=== PATIENT | male | born 1965 | race Caucasian/White ===

== ENCOUNTER 2017-04-14 15:01 | Inpatient (IN) | payer MEDICARE, OTHER ==
[~2017-04-14] VITALS: Ht 185.4 cm; Wt 99.8 kg
[2017-04-14 15:23] LABS: HEMOGLOBIN 14.8 gm/dl (14.0-17.5); RED BLOOD COUNT 5.37 M/UL (4.20-5.50); WHITE BLOOD COUNT 9.7 K/UL (4.5-11.0)
[2017-04-14 15:46] LABS: BUN/CREATININE RATIO 28 (0-10)
[2017-04-15 02:49] LABS: RED BLOOD COUNT 5.09 M/UL (4.20-5.50); WHITE BLOOD COUNT 8.6 K/UL (4.5-11.0)
[2017-04-15 03:11] LABS: BUN/CREATININE RATIO 24 (0-10)
--- NOTE | 2017-04-15 18:26 | NUR ---
CRITICAL RESULTS CALLED TO DR MCKEON THIS AM, NO ORDERS RECEIVED AT THIS TIME
[2017-04-16 05:36] LABS: HEMOGLOBIN 14.5 gm/dl (14.0-17.5); RED BLOOD COUNT 5.29 M/UL (4.20-5.50); WHITE BLOOD COUNT 9.2 K/UL (4.5-11.0)
[2017-04-16 06:05] LABS: BUN/CREATININE RATIO 33 (0-10)
[2017-04-17 05:44] LABS: BUN/CREATININE RATIO 39 (0-10)
[2017-04-18 06:30] LABS: HEMOGLOBIN 14.2 gm/dl (14.0-17.5); RED BLOOD COUNT 5.18 M/UL (4.20-5.50); WHITE BLOOD COUNT 8.5 K/UL (4.5-11.0)
[2017-04-18 06:52] LABS: BUN/CREATININE RATIO 33 (0-10)
[2017-04-19 06:49] LABS: BUN/CREATININE RATIO 31 (0-10); HEMOGLOBIN 14.6 gm/dl (14.0-17.5); RED BLOOD COUNT 5.41 M/UL (4.20-5.50); WHITE BLOOD COUNT 8.2 K/UL (4.5-11.0)
== END 2017-04-21 16:08 | DRG 871 ==
LOC: ER1 15:01 → ZEROF 17:00 → M/S 17:00
PROVIDERS: Family Medicine; Internal Medicine; Internal Medicine Cardiovascular Disease; ADMIT Family Medicine
PROC: 4A023N7 Measurement of Cardiac Sampling and Pressure, Left Heart, Percutaneous Approach (ICD-10-PCS; principal; 2017-04-18)
PROC: B2111ZZ Fluoroscopy of Multiple Coronary Arteries using Low Osmolar Contrast (ICD-10-PCS; 2017-04-18)
PROC: 02HV33Z Insertion of Infusion Device into Superior Vena Cava, Percutaneous Approach (ICD-10-PCS; 2017-04-21)
PROC: B548ZZA Ultrasonography of Superior Vena Cava, Guidance (ICD-10-PCS; 2017-04-21)
DX: A41.01 Sepsis due to Methicillin susceptible Staphylococcus aureus (principal); I50.23 Acute on chronic systolic (congestive) heart failure; M86.171 Other acute osteomyelitis, right ankle and foot; I47.2 Ventricular tachycardia; I42.0 Dilated cardiomyopathy; M86.671 Other chronic osteomyelitis, right ankle and foot; I11.0 Hypertensive heart disease with heart failure; E11.69 Type 2 diabetes mellitus with other specified complication; E11.621 Type 2 diabetes mellitus with foot ulcer; L97.519 Non-pressure chronic ulcer of other part of right foot with unspecified severity; L97.529 Non-pressure chronic ulcer of other part of left foot with unspecified severity; J44.9 Chronic obstructive pulmonary disease, unspecified; E03.9 Hypothyroidism, unspecified; E78.5 Hyperlipidemia, unspecified; I34.0 Nonrheumatic mitral (valve) insufficiency; I45.9 Conduction disorder, unspecified; R74.8 Abnormal levels of other serum enzymes; L84 Corns and callosities; Z77.22 Contact with and (suspected) exposure to environmental tobacco smoke (acute) (chronic); G47.00 Insomnia, unspecified; Z91.14 Patient's other noncompliance with medication regimen; Z91.19 Patient's noncompliance with other medical treatment and regimen; Z86.73 Personal history of transient ischemic attack (TIA), and cerebral infarction without residual deficits; Z59.0 Homelessness; Z88.3 Allergy status to other anti-infective agents; Z88.1 Allergy status to other antibiotic agents; Z88.0 Allergy status to penicillin; Z82.49 Family history of ischemic heart disease and other diseases of the circulatory system; Z83.3 Family history of diabetes mellitus; Z84.1 Family history of disorders of kidney and ureter; Z80.9 Family history of malignant neoplasm, unspecified
CPT/HCPCS: ECHO; 36415; 36600; 71010; 71020; 73718; 80048; 80053; 80061; 80202; 82550; 82553; 82803; 82962; 83036; 83735; 83874; 83880; 84439; 84443; 84484; 85025; 85027; 85610; 86140; 87040; 87070; 87077; 87186; 87205; 93005; 93306; 93925; 94664; 96374; 99285; C1769; C1894; J0690; J1335; J1644; J1650; J1940; J2250; J2270; J3010; J3370; J7030; J7050; Q9963

== ENCOUNTER → 2020-12-01 | Outpatient (CLI) | payer MEDICARE, OTHER ==
[~2020-12-01] MED LIST: ACCU-CHEK COMB1 EACH MC; ALDACTONE 25MG25 MG PO; ALPRAZOLAM0.5 MG PO; AMITIZA 24 MCG24 MCG PO; AMOX CLAV PO; ASPIR-LOW81 MG PO; ASPIRIN EC81 MG PO; ATORVASTATIN CA20 MG PO; AUGMENTIN 875-1 EACH PO; BACLOFEN20 MG PO; BACTRIM DS TAB1 EACH PO; BENADRYL ALLERG25 MG PO; BENADRYL25 MG PO; BETADINE30 ML TOP; CLARITIN 10MG T10 MG PO; CLARITIN10 MG PO; CLEOCIN 150MG150 MG PO; CLEOCIN HCL300 MG PO; COREG 12.5MG12.5 MG PO; COZAAR 50MG TAB50 MG PO; DESYREL 50 MG T50 MG PO; DOME-PASTE BANDA1 EA EXT; ELIQUIS5 MG PO; FERROUS SULFAT325 M2 PO; FLAGYL INJ; FLONASE 0.05% N16 GM; FUROSEMIDE20 MG PO; FUROSEMIDE40 MG PO; GABAPENTIN800 MG PO; HUMALOG MI100 UNIT/3 SQ; HUMALOG100 UNIT/3 SC; HUMALOG100 UNIT/3 SQ; HYDROCODON-ACE1 EAC2 PO; HYDROCODON-ACE1 EAC4 PO; HYSEPT473 ML TOP; JANUMET 50-1,01 EACH PO; K-DUR TAB 10 M10 MEQ PO; KEFLEX500 MG PO; LANCET 30G-GLU1 EACH MC; LANTUS INS100 UTS/M1 SC; LANTUS INS100 UTS/M2 SQ; LANTUS SOL100 UNIT/1 SQ; LASIX20 MG PO; LASIX40 MG PO; LASIX80 MG PO; LEVAQUIN750 MG PO; LEVOFLOXACIN500 MG PO; LEVOFLOXACIN750 MG PO; LEVOTHYROXINE50 MCG PO; LIPITOR TAB 2020 MG PO; LIPITOR80 MG PO; LISINOPRIL10 MG PO; LISINOPRIL5 MG PO; LOPRESSOR 50 MG50 MG PO; LORTAB 7.5-3251 EACH PO; LOVENOX SY120 MG/0.8 SQ; METOPROLOL SUCC25 MG PO; MIRALAX17 GM PO; MUCINEX600 MG PO; NEOSPORIN OINT15 GM TOP; NEURONTIN 400400 MG PO; NEURONTIN800 MG PO; NORCO 10-325 T1 EACH PO; NORCO 5-325 TA1 EACH PO; NORCO 7.5-3251 EACH PO; PERCOCET 5/325 T1 EA PO; POVIDONE-IOD28.35 GM TOP; PROAIR HFA8.5 GM INH; PROTONIX40 MG PO; ROCEPHIN 2 GM AD2 GM IV; SENOKOT-S TABL1 EACH PO; SEROQUEL25 MG PO; SERTRALINE HCL50 MG PO; SYNTHROID100 MCG PO; TOPROL XL 25 MG25 MG PO; VANCOMYCIN; VANCOMYCIN HC1.25 GM IV; VANCOMYCIN1.5 GM/300 IV; VITAMIN C 500500 MG PO; WARFARIN SODIUM5 MG PO; XANAX 0.25 MG0.25 MG PO; ZESTRIL/PRINIVI10 MG PO; ZYVOX600 MG PO
== END ==
LOC: KOH-I 09:30
DX: M86.8X7 Other osteomyelitis, ankle and foot (principal); Z89.411 Acquired absence of right great toe; M79.89 Other specified soft tissue disorders
CPT/HCPCS: 73718

== ENCOUNTER → 2021-02-28 | Outpatient (CLI) | payer MEDICARE, OTHER | LOC: KOH-I 02-23 15:30 | DX: M86.171 Other acute osteomyelitis, right ankle and foot (principal); Z98.890 Other specified postprocedural states; Z47.89 Encounter for other orthopedic aftercare | CPT/HCPCS: 73718 ==

== ENCOUNTER 2021-03-05 16:45 | Inpatient (IN) | payer MEDICARE, OTHER ==
[~2021-03-05] VITALS: Ht 182.9 cm; Wt 114.3 kg
[~2021-03-05 16:45] MED LIST changes: -ACCU-CHEK COMB1 EACH MC; -HUMALOG100 UNIT/3 SC; -JANUMET 50-1,01 EACH PO; -LANCET 30G-GLU1 EACH MC; -LANTUS INS100 UTS/M1 SC; -LANTUS SOL100 UNIT/1 SQ
[2021-03-05] MEDS ORDERED: HYDROCODON-ACE1 EAC2 PO (19:40)
[2021-03-05 20:35] LABS: HEMOGLOBIN 14.8 gm/dl (14.0-17.5); RED BLOOD COUNT 5.56 M/UL (4.20-5.50); WHITE BLOOD COUNT 8.1 K/UL (4.5-11.0)
[2021-03-05 21:03] LABS: BUN/CREATININE RATIO 52 (0-10)
[2021-03-06 05:39] LABS: BUN/CREATININE RATIO 48 (0-10)
--- NOTE | 2021-03-06 15:31 | NUR ---
CALLED DR. RBAXTON 4 TIMES AND LEFT MESSAGE ON 3RD CALL. NO CALL BACK.
[2021-03-07 04:50] LABS: HEMOGLOBIN 13.5 gm/dl (14.0-17.5); RED BLOOD COUNT 5.11 M/UL (4.20-5.50)
[2021-03-07 04:56] LABS: WHITE BLOOD COUNT 5.9 K/UL (4.5-11.0)
[2021-03-07 05:12] LABS: BUN/CREATININE RATIO 41 (0-10)
--- NOTE | 2021-03-07 11:51 | NUR ---
Patient transported by or staff members to the or for surgery with dr. florence today
[2021-03-08 04:12] LABS: HEMOGLOBIN 13.6 gm/dl (14.0-17.5); RED BLOOD COUNT 5.1 M/UL (4.20-5.50)
[2021-03-08 04:14] LABS: WHITE BLOOD COUNT 12.1 K/UL (4.5-11.0)
[2021-03-08 04:50] LABS: BUN/CREATININE RATIO 41 (0-10)
[2021-03-08 11:25] LABS: BUN/CREATININE RATIO 45 (0-10)
[2021-03-09 06:01] LABS: HEMOGLOBIN 13.2 gm/dl (14.0-17.5); RED BLOOD COUNT 5.08 M/UL (4.20-5.50)
[2021-03-09 06:02] LABS: WHITE BLOOD COUNT 7.2 K/UL (4.5-11.0)
[2021-03-09 06:17] LABS: BUN/CREATININE RATIO 35 (0-10)
[2021-03-10 03:36] LABS: HEMOGLOBIN 13.3 gm/dl (14.0-17.5); RED BLOOD COUNT 5.29 M/UL (4.20-5.50); WHITE BLOOD COUNT 7.4 K/UL (4.5-11.0)
[2021-03-10 04:34] LABS: BUN/CREATININE RATIO 40 (0-10)
--- NOTE | 2021-03-10 05:03 | NUR ---
0045 Pt sitting on side of bed states feeling better than i was. Pt denies any chest tightness, headache, ornot feeling well.
--- NOTE | 2021-03-10 05:03 | NUR ---
2350 Visitor brought pt arnold taylor.
--- NOTE | 2021-03-10 05:04 | NUR ---
0200 Pt resting quietly with eyes closed. No acute distress noted. No c/o voiced.
--- NOTE | 2021-03-11 03:17 | NUR ---
03/11/21 0000 PT HAS BEEN GETTING FOOD OUT OF VENDING MACHINE.
[2021-03-11 03:24] LABS: HEMOGLOBIN 13.2 gm/dl (14.0-17.5); RED BLOOD COUNT 5.04 M/UL (4.20-5.50); WHITE BLOOD COUNT 5.6 K/UL (4.5-11.0)
[2021-03-11 03:46] LABS: BUN/CREATININE RATIO 35 (0-10)
[2021-03-12 02:55] LABS: HEMOGLOBIN 13.8 gm/dl (14.0-17.5); RED BLOOD COUNT 5.27 M/UL (4.20-5.50)
[2021-03-12 03:19] LABS: BUN/CREATININE RATIO 37 (0-10)
--- NOTE | 2021-03-12 04:00 | NUR ---
03/12/21 0030 PT REFUSED DRSG CHANGE. STATES WAS DONE LATE IN THE DAY AND WILL WAIT UNTIL TOMORROW.
[2021-03-12] MEDS ORDERED: LANTUS INS100 UTS/M1 SC (17:43)
[2021-03-12] MEDS ORDERED: JANUMET 50-1,01 EACH PO (17:43)
[2021-03-12] MEDS ORDERED: ZYVOX600 MG PO (17:43)
[2021-03-12] MEDS ORDERED: LANCET 30G-GLU1 EACH MC (17:47)
[2021-03-12] MEDS ORDERED: ACCU-CHEK COMB1 EACH MC (17:47)
[2021-03-12] MEDS ORDERED: LANTUS SOL100 UNIT/1 SQ (17:54)
[2021-03-12] MEDS ORDERED: HUMALOG100 UNIT/3 SC (17:54)
== END 2021-03-12 19:16 | disposition home or self-care (01) | DRG 617 ==
LOC: M/S 18:15 → OB 03-08 09:52 → M/S 03-12 19:16
PROVIDERS: Family Medicine; Internal Medicine; Physician Assistant Medical; Podiatrist Foot & Ankle Surgery; ADMIT Internal Medicine
PROC: 0JBQ0ZZ Excision of Right Foot Subcutaneous Tissue and Fascia, Open Approach (ICD-10-PCS; 2021-03-07)
PROC: 0Y6W0Z0 Detachment at Left 4th Toe, Complete, Open Approach (ICD-10-PCS; principal; 2021-03-07 12:15)
DX: E11.69 Type 2 diabetes mellitus with other specified complication (principal); E11.52 Type 2 diabetes mellitus with diabetic peripheral angiopathy with gangrene; I96 Gangrene, not elsewhere classified; M86.8X7 Other osteomyelitis, ankle and foot; L03.115 Cellulitis of right lower limb; I50.22 Chronic systolic (congestive) heart failure; E87.1 Hypo-osmolality and hyponatremia; I42.8 Other cardiomyopathies; E11.621 Type 2 diabetes mellitus with foot ulcer; E11.65 Type 2 diabetes mellitus with hyperglycemia; E78.5 Hyperlipidemia, unspecified; I10 Essential (primary) hypertension; E03.9 Hypothyroidism, unspecified; F41.9 Anxiety disorder, unspecified; E11.40 Type 2 diabetes mellitus with diabetic neuropathy, unspecified; Z20.822 Contact with and (suspected) exposure to COVID-19; I11.0 Hypertensive heart disease with heart failure; Z91.14 Patient's other noncompliance with medication regimen; Z86.711 Personal history of pulmonary embolism; Z88.6 Allergy status to analgesic agent; Z83.3 Family history of diabetes mellitus
CPT/HCPCS: 36415; 73718; 80048; 80053; 80202; 81001; 82550; 82553; 82962; 83036; 83735; 83930; 83935; 84132; 84300; 84484; 85025; 87040; 87070; 87077; 87186; 87205; 93005; 93925; J1100; J1335; J1644; J1940; J2001; J2185; J2270; J2405; J2704; J2795; J3010; J3370; J7030; J7050; J7070; J7120; Q4133; U0002

== ENCOUNTER 2021-08-02 09:57 | Emergency (ER) | payer MEDICARE, OTHER ==
[~2021-08-02 09:57] MED LIST changes: +ACCU-CHEK COMB1 EACH MC; +HUMALOG100 UNIT/3 SC; +JANUMET 50-1,01 EACH PO; +LANCET 30G-GLU1 EACH MC; +LANTUS INS100 UTS/M1 SC; +LANTUS SOL100 UNIT/1 SQ
[2021-08-02 12:21] LABS: HEMOGLOBIN 13.5 gm/dl (14.0-17.5); RED BLOOD COUNT 4.65 M/UL (4.20-5.50)
[2021-08-02 12:51] LABS: BUN/CREATININE RATIO 27 (0-10)
[2021-08-02] MEDS ORDERED: AUGMENTIN 875-1 EACH PO (18:09)
== END 2021-08-02 18:54 | disposition home or self-care (01) ==
LOC: ER1 09:57
PROVIDERS: Nurse Practitioner
DX: E11.621 Type 2 diabetes mellitus with foot ulcer (principal); E11.9 Type 2 diabetes mellitus without complications; I10 Essential (primary) hypertension; E78.5 Hyperlipidemia, unspecified; E03.9 Hypothyroidism, unspecified; Z88.8 Allergy status to other drugs, medicaments and biological substances
CPT/HCPCS: 73630; 80053; 83605; 85025; 85652; 86140; 87040; 87070; 87077; 87186; 87205; 99284

== ENCOUNTER 2021-10-15 16:42 | Inpatient (IN) | payer MEDICARE, OTHER ==
[~2021-10-15] VITALS: Ht 182.9 cm; Wt 99.3 kg
[~2021-10-15 16:42] MED LIST changes: +METOPROLOL TART25 MG PO; -TOPROL XL 25 MG25 MG PO
[2021-10-15 18:45] LABS: HEMOGLOBIN 14.1 gm/dl (14.0-17.5); RED BLOOD COUNT 5.11 M/UL (4.20-5.50)
[2021-10-15 19:28] LABS: BUN/CREATININE RATIO 40 (0-10)
[2021-10-16] MEDS ORDERED: GABAPENTIN600 MG PO (00:23)
[2021-10-16 08:48] LABS: RED BLOOD COUNT 4.71 M/UL (4.20-5.50); WHITE BLOOD COUNT 9.6 K/UL (4.5-11.0)
[2021-10-16 09:58] LABS: BUN/CREATININE RATIO 40 (0-10)
[2021-10-16] MEDS ORDERED: TRAZODONE HCL50 MG PO (11:24)
[2021-10-16] MEDS ORDERED: MELATONIN3 MG PO (11:28)
[2021-10-16] MEDS ORDERED: LORATADINE10 MG PO (11:28)
[2021-10-16] MEDS ORDERED: ELIQUIS5 MG PO (11:28)
[2021-10-16] MEDS ORDERED: SERTRALINE HCL50 MG PO (11:28)
[2021-10-17 05:43] LABS: HEMOGLOBIN 11.3 gm/dl (14.0-17.5); RED BLOOD COUNT 4.27 M/UL (4.20-5.50); WHITE BLOOD COUNT 7.6 K/UL (4.5-11.0)
[2021-10-17 06:41] LABS: BUN/CREATININE RATIO 27 (0-10)
[2021-10-18 06:15] LABS: HEMOGLOBIN 11.2 gm/dl (14.0-17.5); RED BLOOD COUNT 4.08 M/UL (4.20-5.50); WHITE BLOOD COUNT 8.6 K/UL (4.5-11.0)
[2021-10-18 06:46] LABS: BUN/CREATININE RATIO 30 (0-10)
[2021-10-19 06:11] LABS: BUN/CREATININE RATIO 22 (0-10)
--- NOTE | 2021-10-19 14:28 | NUR ---
Patient declined dressing change on bilateral feet. The patient stated that they were recently changed this morning, were not leaking, and the dressing wasn't causing any discomfort so did not need changed again.
[2021-10-20 07:56] LABS: HEMOGLOBIN 10.3 gm/dl (14.0-17.5); RED BLOOD COUNT 3.93 M/UL (4.20-5.50)
[2021-10-20 07:57] LABS: WHITE BLOOD COUNT 5.5 K/UL (4.5-11.0)
[2021-10-20 08:06] LABS: BUN/CREATININE RATIO 22 (0-10)
[2021-10-23 08:18] LABS: HEMOGLOBIN 10.8 gm/dl (14.0-17.5); RED BLOOD COUNT 4.01 M/UL (4.20-5.50); WHITE BLOOD COUNT 6.4 K/UL (4.5-11.0)
[2021-10-23 08:44] LABS: BUN/CREATININE RATIO 19 (0-10)
[2021-10-23] MEDS ORDERED: ERTAPENEM (12:22)
[2021-10-23] MEDS ORDERED: DAPTOMYCIN (12:22)
[2021-10-24 07:50] LABS: HEMOGLOBIN 10.6 gm/dl (14.0-17.5); RED BLOOD COUNT 4.03 M/UL (4.20-5.50); WHITE BLOOD COUNT 5.8 K/UL (4.5-11.0)
[2021-10-24 08:22] LABS: BUN/CREATININE RATIO 18 (0-10)
--- NOTE | 2021-10-24 15:01 | NUR ---
PT SENT HOME WITH IV ANTIBIOTICS FOR PRESCRIPTION IV ANTIBIOTICS. [facility] CALLED REPORT (GILMER
== END 2021-10-24 17:36 | disposition home health service (06) | DRG 264 ==
LOC: ER1 16:42 → CDU 22:16 → MED SURG 4 22:16
PROVIDERS: Emergency Medicine; Internal Medicine; Internal Medicine Infectious Disease; Physician Assistant; ADMIT Internal Medicine
PROC: 0JBQ0ZZ Excision of Right Foot Subcutaneous Tissue and Fascia, Open Approach (ICD-10-PCS; principal; 2021-10-19)
PROC: 0JBR0ZZ Excision of Left Foot Subcutaneous Tissue and Fascia, Open Approach (ICD-10-PCS; 2021-10-19)
PROC: 02HV33Z Insertion of Infusion Device into Superior Vena Cava, Percutaneous Approach (ICD-10-PCS; 2021-10-24)
PROC: B548ZZA Ultrasonography of Superior Vena Cava, Guidance (ICD-10-PCS; 2021-10-24)
DX: E11.52 Type 2 diabetes mellitus with diabetic peripheral angiopathy with gangrene (principal); M86.8X7 Other osteomyelitis, ankle and foot; I50.22 Chronic systolic (congestive) heart failure; Z20.822 Contact with and (suspected) exposure to COVID-19; I42.9 Cardiomyopathy, unspecified; L03.115 Cellulitis of right lower limb; E11.69 Type 2 diabetes mellitus with other specified complication; E03.9 Hypothyroidism, unspecified; E78.5 Hyperlipidemia, unspecified; E11.610 Type 2 diabetes mellitus with diabetic neuropathic arthropathy; I11.0 Hypertensive heart disease with heart failure; E11.621 Type 2 diabetes mellitus with foot ulcer; Z79.4 Long term (current) use of insulin; Z79.82 Long term (current) use of aspirin; Z79.01 Long term (current) use of anticoagulants; Z86.73 Personal history of transient ischemic attack (TIA), and cerebral infarction without residual deficits; Z09 Encounter for follow-up examination after completed treatment for conditions other than malignant neoplasm; Z86.711 Personal history of pulmonary embolism; Z89.431 Acquired absence of right foot; Z98.890 Other specified postprocedural states; Z83.3 Family history of diabetes mellitus; Z82.61 Family history of arthritis; Z88.1 Allergy status to other antibiotic agents
CPT/HCPCS: 36415; 71045; 73630; 73718; 80048; 80053; 80202; 82962; 83036; 83605; 85025; 85027; 85652; 86140; 86141; 87040; 93925; 96374; 96375; 97110-GP-CQ; 97116; 97161; 99285; C1751; J0878; J1335; J1650; J2270; J2405; J3370; J7030; J7070; U0002

== ENCOUNTER → 2021-11-05 | Outpatient (CLI) | payer MEDICARE, OTHER ==
[~2021-11-05] MED LIST changes: +DAPTOMYCIN; +ERTAPENEM; +GABAPENTIN600 MG PO; +LORATADINE10 MG PO; +MELATONIN3 MG PO; +TRAZODONE HCL50 MG PO
[2021-11-05 15:10] LABS: HEMOGLOBIN 11.6 gm/dl (14.0-17.5); RED BLOOD COUNT 4.18 M/UL (4.20-5.50); WHITE BLOOD COUNT 7.3 K/UL (4.5-11.0)
[2021-11-05 15:33] LABS: BUN/CREATININE RATIO 26 (0-10)
== END ==
LOC: PHH 14:23
PROVIDERS: Podiatrist Foot & Ankle Surgery
DX: M86.171 Other acute osteomyelitis, right ankle and foot (principal)
CPT/HCPCS: 80053; 85025; 85652; 86140

== ENCOUNTER 2022-06-11 16:10 | Inpatient (IN) | payer MEDICARE, OTHER ==
[~2022-06-11] VITALS: Ht 182.9 cm; Wt 122.1 kg
[~2022-06-11 16:10] MED LIST changes: +AMIODARONE HCL200 MG PO; +BUMETANIDE1 MG PO; +COMBIVENT RESPIM4 GM INH; +GABAPENTIN100 MG PO; +GABAPENTIN300 MG PO; -GABAPENTIN600 MG PO; +HUMALOG 10100 UNITS/ SC; +INVANZ 1 GM VIAL1 GM IV; +JARDIANCE10 MG PO; +LANTUS100 UNIT/1 SQ; +LEVOTHYROXINE100 MCG PO; +LEVOTHYROXINE125 MCG PO; +LIPITOR40 MG PO; +MIDODRINE HCL2.5 MG PO; +NYSTATIN60 GM TOP; +PRAZOSIN HCL2 MG PO; +QUETIAPINE FUM100 MG PO; +RISPERIDONE1 MG PO; +THERAGRAN M TAB1 EA PO
[2022-06-11] MEDS ORDERED: GABAPENTIN300 MG PO (17:13)
[2022-06-11] MEDS ORDERED: HUMALOG100 UNIT/2 SQ ×2 (17:13→17:14)
[2022-06-11] MEDS ORDERED: FLONASE ALLER15.8 ML (17:13)
[2022-06-11] MEDS ORDERED: PROTONIX 40 MG40 M1 PO (17:14)
[2022-06-11] MEDS ORDERED: LEVOTHYROXINE175 MCG PO (17:14)
[2022-06-11] MEDS ORDERED: ELIQUIS2.5 MG PO (17:14)
[2022-06-11] MEDS ORDERED: BUMETANIDE2 MG PO (17:15)
[2022-06-11] MEDS ORDERED: DOCUSATE SODIU100 MG PO (17:15)
[2022-06-11] MEDS ORDERED: LANTUS100 UNIT/1 SQ (17:15)
[2022-06-11] MEDS ORDERED: ATORVASTATIN CA40 MG PO (17:15)
[2022-06-11] MEDS ORDERED: TYLENOL325 M1 PO (17:16)
[2022-06-11] MEDS ORDERED: BISACODYL10 MG PR (17:16)
[2022-06-11] MEDS ORDERED: ASPIRIN EC81 MG PO (17:16)
[2022-06-11] MEDS ORDERED: AMIODARONE HCL200 MG PO (17:16)
[2022-06-11] MEDS ORDERED: MIDODRINE HCL5 MG PO (17:17)
[2022-06-11] MEDS ORDERED: SPIRONOLACTONE25 MG PO (17:17)
[2022-06-11] MEDS ORDERED: FERROUS SULFAT325 MG PO (17:17)
[2022-06-11] MEDS ORDERED: MELATONIN3 MG PO (17:17)
[2022-06-11] MEDS ORDERED: MYCOSTATIN OINT15 GM TOP (17:18)
[2022-06-11] MEDS ORDERED: SERTRALINE HCL50 MG PO (17:18)
[2022-06-11] MEDS ORDERED: MOVANTIK12.5 MG PO (17:18)
[2022-06-11] MEDS ORDERED: METOCLOPRAMIDE H5 MG PO (17:18)
[2022-06-11] MEDS ORDERED: ZOFRAN ODT 4 MG4 MG PO (17:19)
[2022-06-11] MEDS ORDERED: MIRALAX17 GM PO (17:19)
[2022-06-11] MEDS ORDERED: OXYCODONE HCL10 MG PO (17:19)
[2022-06-11] MEDS ORDERED: SENNA-DOCUSATE1 EACH PO (17:20)
[2022-06-11] MEDS ORDERED: SIMETHICONE80 MG PO (17:20)
[2022-06-11] MEDS ORDERED: NASAL SPRAY44 ML (17:21)
[2022-06-11 18:55] LABS: RED BLOOD COUNT 3.86 M/UL (4.20-5.50); WHITE BLOOD COUNT 6.6 K/UL (4.5-11.0)
[2022-06-12 02:56] LABS: HEMOGLOBIN 10.4 gm/dl (14.0-17.5); RED BLOOD COUNT 3.64 M/UL (4.20-5.50); WHITE BLOOD COUNT 6.3 K/UL (4.5-11.0)
[2022-06-13 03:24] LABS: HEMOGLOBIN 10.5 gm/dl (14.0-17.5); RED BLOOD COUNT 3.71 M/UL (4.20-5.50); WHITE BLOOD COUNT 7.8 K/UL (4.5-11.0)
[2022-06-14 01:50] LABS: HEMOGLOBIN 10.6 gm/dl (14.0-17.5); RED BLOOD COUNT 3.65 M/UL (4.20-5.50); WHITE BLOOD COUNT 6.3 K/UL (4.5-11.0)
[2022-06-15 01:39] LABS: HEMOGLOBIN 10.4 gm/dl (14.0-17.5); RED BLOOD COUNT 3.61 M/UL (4.20-5.50)
[2022-06-18 01:55] LABS: HEMOGLOBIN 10.6 gm/dl (14.0-17.5); RED BLOOD COUNT 3.71 M/UL (4.20-5.50); WHITE BLOOD COUNT 7.4 K/UL (4.5-11.0)
--- NOTE | 2022-06-18 11:18 | NUR ---
[facility] PLACE ORDER TO CASE MANAGEMENT FOR HOME WALKER
[2022-06-19] MEDS ORDERED: SENNA-DOCUSATE1 EACH PO (14:55)
[2022-06-19] MEDS ORDERED: JARDIANCE10 MG PO (14:55)
[2022-06-19] MEDS ORDERED: MIRALAX17 GM PO (14:55)
[2022-06-19] MEDS ORDERED: BUMETANIDE1 MG PO (14:55)
--- NOTE | 2022-06-19 17:46 | NUR ---
CALLED BY TRANSPORT RE PT COULD NOT GET UP INTO CAB. PT STATED COULD NOT MOVE LEGS ANYMORE AND COULD NOT GET IN CAB AND ALSO STATES CAN NOT GET INTO HOUSE BECAUSE THEY HAVE 6 STEPS TO GO UP AND WOULD NOT BE ABLE TO GET UP THEM. CALLED [employer] MACHINE AND SHE STATED TO TAKE PT BACK TO ROOM 6111 AND LET MD KNOW WHAT HAPPENED.
[2022-06-23 08:20] LABS: HEMOGLOBIN 11.2 gm/dl (14.0-17.5); RED BLOOD COUNT 4.01 M/UL (4.20-5.50); WHITE BLOOD COUNT 8.5 K/UL (4.5-11.0)
[2022-06-26 13:27] LABS: HEMOGLOBIN 10.8 gm/dl (14.0-17.5)
[2022-06-27 06:31] LABS: RED BLOOD COUNT 3.62 M/UL (4.20-5.50); WHITE BLOOD COUNT 8.4 K/UL (4.5-11.0)
[2022-06-28 06:55] LABS: HEMOGLOBIN 10.1 gm/dl (14.0-17.5); RED BLOOD COUNT 3.63 M/UL (4.20-5.50); WHITE BLOOD COUNT 9.1 K/UL (4.5-11.0)
[2022-07-01 06:22] LABS: HEMOGLOBIN 10.5 gm/dl (14.0-17.5); RED BLOOD COUNT 3.79 M/UL (4.20-5.50)
[2022-07-03 07:24] LABS: HEMOGLOBIN 10.5 gm/dl (14.0-17.5); RED BLOOD COUNT 3.76 M/UL (4.20-5.50)
[2022-07-03 07:29] LABS: WHITE BLOOD COUNT 9.3 K/UL (4.5-11.0)
[2022-07-04 07:10] LABS: HEMOGLOBIN 10.2 gm/dl (14.0-17.5); RED BLOOD COUNT 3.67 M/UL (4.20-5.50); WHITE BLOOD COUNT 7.6 K/UL (4.5-11.0)
[2022-07-05 05:29] LABS: HEMOGLOBIN 11.1 gm/dl (14.0-17.5); RED BLOOD COUNT 4.01 M/UL (4.20-5.50); WHITE BLOOD COUNT 6.8 K/UL (4.5-11.0)
[2022-07-07 04:29] LABS: HEMOGLOBIN 10.6 gm/dl (14.0-17.5); RED BLOOD COUNT 3.87 M/UL (4.20-5.50); WHITE BLOOD COUNT 6.7 K/UL (4.5-11.0)
--- NOTE | 2022-07-07 05:27 | NUR ---
PT REFUSED DRESSING CHANGE. PATIENT SAID IT WAS JUST DONE AND THERE WAS NO REASON TO DO IT AGAIN
[2022-07-08 04:46] LABS: HEMOGLOBIN 10.2 gm/dl (14.0-17.5); RED BLOOD COUNT 3.7 M/UL (4.20-5.50); WHITE BLOOD COUNT 6.9 K/UL (4.5-11.0)
--- NOTE | 2022-07-08 16:26 | NUR ---
THE 1200 FERROUS SULFATE HAS BEEN GIVEN BUT NOT SIGNED OFF DUE TO SYSTEM NOT ALLOWING ME TO SIGN IT OFF.
--- NOTE | 2022-07-08 16:38 | NUR ---
THE FERROUS SULFATE PILL 1700 WAS GIVEN BUT COMPUTER SYSTEM WILL NOT ALLOW ME TO SIGN IT OFF GIVEN
[2022-07-09 06:04] LABS: HEMOGLOBIN 10.8 gm/dl (14.0-17.5); RED BLOOD COUNT 3.92 M/UL (4.20-5.50); WHITE BLOOD COUNT 7.5 K/UL (4.5-11.0)
[2022-07-10 07:11] LABS: RED BLOOD COUNT 4.02 M/UL (4.20-5.50); WHITE BLOOD COUNT 7.6 K/UL (4.5-11.0)
[2022-07-11 06:34] LABS: HEMOGLOBIN 10.7 gm/dl (14.0-17.5); RED BLOOD COUNT 3.93 M/UL (4.20-5.50); WHITE BLOOD COUNT 7.2 K/UL (4.5-11.0)
--- NOTE | 2022-07-12 09:54 | NUR ---
CALLED AND SPOKE WITH DR. LEZAMA REGARDING PICC LINE ORDER FOR THIS PATIENT, BUN 35 CREAT 1.62, GFR 44, PT HAS A HISTORY OF CKD STAGE 3, NO URINE SAMPLE THIS ADMISSION, BUT HAD SOME PROTEIN IN URINE IN APRIL 2022, I MADE DR LEZAMA AWARE OF ALL OF THIS, SHE DOES NOT WANT TO CONSULT NEPHROLOGY AT THIS TIME, ORDERED OK TO PLACE PICC LINE AT THIS TIME
== END 2022-07-12 18:30 | DRG 264 ==
LOC: PROG CARE 16:10 → MED SURG 4 16:10
PROVIDERS: Internal Medicine; Internal Medicine Infectious Disease; Physician Assistant; ADMIT Internal Medicine
PROC: 0JBR0ZZ Excision of Left Foot Subcutaneous Tissue and Fascia, Open Approach (ICD-10-PCS; 2022-07-03)
PROC: 0J9R0ZZ Drainage of Left Foot Subcutaneous Tissue and Fascia, Open Approach (ICD-10-PCS; 2022-07-03)
PROC: 02HV33Z Insertion of Infusion Device into Superior Vena Cava, Percutaneous Approach (ICD-10-PCS; principal; 2022-07-12)
PROC: B548ZZA Ultrasonography of Superior Vena Cava, Guidance (ICD-10-PCS; 2022-07-12)
DX: I47.1 Supraventricular tachycardia (principal); Z20.822 Contact with and (suspected) exposure to COVID-19; I50.23 Acute on chronic systolic (congestive) heart failure; I13.0 Hypertensive heart and chronic kidney disease with heart failure and stage 1 through stage 4 chronic kidney disease, or unspecified chronic kidney disease; M86.672 Other chronic osteomyelitis, left ankle and foot; M86.671 Other chronic osteomyelitis, right ankle and foot; I42.0 Dilated cardiomyopathy; N17.9 Acute kidney failure, unspecified; E11.52 Type 2 diabetes mellitus with diabetic peripheral angiopathy with gangrene; E78.5 Hyperlipidemia, unspecified; L89.312 Pressure ulcer of right buttock, stage 2; L89.151 Pressure ulcer of sacral region, stage 1; E03.9 Hypothyroidism, unspecified; E66.9 Obesity, unspecified; F64.9 Gender identity disorder, unspecified; I25.10 Atherosclerotic heart disease of native coronary artery without angina pectoris; I25.5 Ischemic cardiomyopathy; D63.1 Anemia in chronic kidney disease; I34.0 Nonrheumatic mitral (valve) insufficiency; I44.7 Left bundle-branch block, unspecified; N18.30 Chronic kidney disease, stage 3 unspecified; R53.81 Other malaise; E11.22 Type 2 diabetes mellitus with diabetic chronic kidney disease; Z79.4 Long term (current) use of insulin; Z91.14 Patient's other noncompliance with medication regimen; Z79.01 Long term (current) use of anticoagulants; Z95.2 Presence of prosthetic heart valve; Z89.422 Acquired absence of other left toe(s); Z89.421 Acquired absence of other right toe(s); Z82.49 Family history of ischemic heart disease and other diseases of the circulatory system; Z83.3 Family history of diabetes mellitus; Z79.82 Long term (current) use of aspirin; Z86.73 Personal history of transient ischemic attack (TIA), and cerebral infarction without residual deficits; Z68.35 Body mass index [BMI] 35.0-35.9, adult; Z74.01 Bed confinement status
CPT/HCPCS: 36415; 71045; 73610; 78315; 80048; 80053; 80202; 82962; 83036; 83735; 83880; 84100; 84439; 84443; 85014; 85018; 85025; 85027; 86140; 87070; 87077; 87186; 87205; 93005; 94760; 97110; 97110-GP-CQ; 97116-GP-CQ; 97162; 97165; 97530-GP-CQ; 97535; A6212; A9503; J1335; J2405; J3370; J3475; J7070; U0002